=== PATIENT | female | born 1980 | race Caucasian/White ===

== ENCOUNTER 2017-12-26 17:28 | Emergency (ER) | payer OTHER ==
[~2017-12-26] VITALS: Ht 149.9 cm; Wt 45.4 kg
== END 2017-12-26 20:50 | disposition home or self-care (01) ==
LOC: ER 17:28
DX: O26.851 Spotting complicating pregnancy, first trimester (principal); Z34.01 Encounter for supervision of normal first pregnancy, first trimester

== ENCOUNTER 2018-01-15 11:21 | Emergency (ER) | payer OTHER ==
[~2018-01-15] VITALS: Ht 149.9 cm; Wt 47.6 kg
[2018-01-15] MEDS ORDERED: PRENATABS FA T1 EACH (11:59)
[2018-01-15] MEDS ORDERED: CRINONE1.125 G1 (11:59)
== END 2018-01-15 16:43 | disposition home or self-care (01) ==
LOC: ER 11:21
DX: O20.0 Threatened abortion (principal)